=== PATIENT | male | born 2000 | race Caucasian/White ===

== ENCOUNTER 2021-07-22 12:37 | Emergency (ER) | payer OTHER, SELFPAY ==
[2021-07-22 12:44] VITALS: BP 118/63; PULSE 87; RESP 18; TEMP 36.9; O2SAT 99; BMI 28.1
--- NOTE | 2021-07-22 15:05 | ED.GENADULT ---
HPI - General Adult General Chief complaint: Extremity Problem <Stacey Wise MD - Last Filed: 07/22/21 16:45> Stated complaint: R BIGTOE INFECTION <Stacey Wise MD - Last Filed: 07/22/21 16:45> Time Seen by Provider: 07/22/21 15:02 <Stacey Wise MD - Last Filed: 07/22/21 16:45> Source: patient <Stacey Wise MD - Last Filed: 07/22/21 16:45> Mode of arrival: ambulatory <Stacey Wise MD - Last Filed: 07/22/21 16:45> History of Present Illness HPI narrative: 20-year-old male comes in with a few days of worsening right toenail pain that has become swollen, he attempted to so could over the past couple weeks and noted that improved but then progressively worsened. <Stacey Wise MD - Last Filed: 07/22/21 16:45> Related Data Home medications: Previous Rx's Medication Instructions Recorded acetaminophen 160 mg/5 mL oral 975 mg (30.4688 mL) PO Q6H PRN 07/22/21 suspension (Children's Tylenol) #360 ml amoxicillin 400 mg-potassium 10 ml PO BID 10 Days #200 ml 07/22/21 clavulanate 57 mg/5 mL oral suspension ibuprofen 100 mg/5 mL oral 800 mg (40 mL) PO Q6H PRN #473 ml 07/22/21 suspension (Children's Motrin) <Stacey Wise MD - Last Filed: 07/22/21 16:45> Allergies/adverse reactions: Allergies Allergy/AdvReac Type Severity Reaction Status Date / Time latex Allergy Rash Verified 07/22/21 12:43 <Stacey Wise MD - Last Filed: 07/22/21 16:45> Review of Systems Review of Systems: Pertinent positives and negatives as stated in HPI 10 point review of systems otherwise negative. <Stacey Wise MD - Last Filed: 07/22/21 16:45> PMFSH Past Medical History Attestation statement: The following information was validated with the patient. <MANSI Kent - Last Filed: 07/22/21 18:03> Source: nursing notes reviewed <Stacey Wise MD - Last Filed: 07/22/21 16:45> Social History Social History: Social History Advance Directives: Yes Advance Directives Information Provided: Yes Advance Directives on File: No <Stacey Wise MD - Last Filed: 07/22/21 16:45> Physical Exam ED Vital Signs: Vital Signs - 24 hr 07/22/21 12:44 Temperature 98.5 F Pulse Rate 87 Respiratory Rate 18 Blood Pressure 118/63 Pulse Oximetry 99 BMI result Body Mass Index 28.1 VITAL SIGNS: Reviewed. GENERAL: Well developed, well nourished, in no acute distress. HEAD: Normocephalic/atraumatic EYES: PERRLA, EOMI EARS: Ext canals without abnormality OROPHARYNX: no oral lesions noted, posterior pharynx clear LUNGS: Normal breath sounds. No adventitious sounds or accessory muscle use. SpO2<99> CARDIOVASCULAR: Regular rate and rhythm without noted murmurs ABDOMEN: Soft, non-tender, non-distended with bowel sounds. RIGHT FOOT: Noted erythema and swelling of the great toe with obvious ingrown toenail. NEUROLOGIC: Alert and oriented x 4. Strength and sensation to light touch were grossly intact x 4. <Stacey Wise MD - Last Filed: 07/22/21 16:45> Vital Signs - 24 hr 07/22/21 12:44 Temperature 98.5 F Pulse Rate 87 Respiratory Rate 18 Blood Pressure 118/63 Pulse Oximetry 99 BMI result Body Mass Index 28.1 <MANSI Kent - Last Filed: 07/22/21 18:03> Course Course Course Narrative: 20-year-old male with history and clinical presentation consistent with right big toe ingrown toenail. <Stacey Wise MD - Last Filed: 07/22/21 16:45> Reevaluation(s) Reevaluation #1: patient now status post ingrown right toenail removal. Patient tolerated procedure well. No complications. Patient reports moderate symptomatic relief. Will DC home with antibiotics and symptomatic treatment will instruct to follow-up with Dr. Mccartney the automatic glove former and to return if any new or worsening symptoms. Patient understands agrees with this plan. <MANSI Kent - Last Filed: 07/22/21 18:03> Time: 17:56 <MANSI Kent - Last Filed: 07/22/21 18:03> Medical Decision Making Medical Records Medical records reviewed: Yes I reviewed the patient's medical records. <MANSI Kent - Last Filed: 07/22/21 18:03> Discharge Plan Discharge Clinical Impression: Ingrowing nail, right great toe <Stacey Wise MD - Last Filed: 07/22/21 16:45> Patient Disposition: Home, Self-Care <Stacey Wise MD - Last Filed: 07/22/21 16:45> Instructions: Ingrown Nail (ED), Partial Nail Avulsion for Ingrown Nail (DC), Warm Compress or Soak (ED) <Stacey Wise MD - Last Filed: 07/22/21 16:45> Prescriptions: New amoxicillin-pot clavulanate 400-57 mg/5 mL suspension for reconstitution 10 ml PO BID 10 Days Qty: 200 0RF ibuprofen [Children's Motrin] 100 mg/5 mL suspension 800 mg PO Q6H PRN (Reason: fever or pain) Qty: 473 0RF acetaminophen [Children's Tylenol] 160 mg/5 mL suspension 975 mg PO Q6H PRN (Reason: fever or pain) Qty: 360 0RF <Stacey Wise MD - Last Filed: 07/22/21 16:45> Referrals: Montrell Mccartney [Physician] - 1 week ( call tomorrow to make a follow-up appointment within 1 week) <Stacey Wise MD - Last Filed: 07/22/21 16:45> Stand Alone Forms: Work/School Release <Stacey Wise MD - Last Filed: 07/22/21 16:45>
[2021-07-22] MEDS: Lidocaine HCl 1 % MPF 5 ML VIAL SUBCUT (18:08)
[2021-07-22] MEDS: Ibuprofen Oral Susp 200 MG/10 ML ORAL.SUSP 800 MG PO (18:09)
== END 2021-07-22 18:25 | disposition home or self-care (01) ==
PROVIDERS: Emergency Provider Student in an Organized Health Care Education/Training Program
DX: L60.0 Ingrowing nail (principal)
CPT/HCPCS: 11730; 99284